=== PATIENT | female | born 1975 | race Native Hawaiian/Other Pacific Islander ===

== ENCOUNTER 2019-05-10 13:41 | Outpatient (CLI) | payer BC ==
[2019-05-10 14:18] LABS: PLATELET COUNT 2 K/uL (152-353)
== END 2019-05-10 22:01 | disposition home or self-care (01) ==
LOC: LABW 13:41
PROVIDERS: Nurse Practitioner
DX: D69.6 Thrombocytopenia, unspecified (principal)
CPT/HCPCS: 36415; 85027

== ENCOUNTER 2021-08-22 11:30 | Outpatient (CLI) | payer OTHER | END 2021-08-22 18:58 | disposition home or self-care (01) | LOC: MAMMO 11:30 | PROVIDERS: ATTEND Obstetrics & Gynecology | DX: Z12.31 Encounter for screening mammogram for malignant neoplasm of breast (principal) ==